=== PATIENT | male | born 1950 | race Caucasian/White ===

== ENCOUNTER → 2016-03-31 | Outpatient (CLI) | payer BC | LOC: BMCIMAGING 14:21 | PROVIDERS: ATTEND Internal Medicine | DX: Z13.83 Encounter for screening for respiratory disorder NEC (principal) ==

== ENCOUNTER → 2016-07-02 | Outpatient (CLI) | payer BC | LOC: FIMAGING 10:10 | PROVIDERS: ATTEND Specialist | DX: S56.811A Strain of other muscles, fascia and tendons at forearm level, right arm, initial encounter (principal); M77.8 Other enthesopathies, not elsewhere classified ==